=== PATIENT | male | born 1960 | race Caucasian/White ===

== ENCOUNTER → 2017-07-13 | Outpatient (CLI) | payer OTHER ==
[~2017-07-13] MED LIST: CETI5; ESOM20; LISI5 PO; NAPR550 PO; Percocet 5-3251 EACH PO; Robaxin500 MG PO
== END ==
LOC: LAB SHORT 09:42
DX: J02.9 Acute pharyngitis, unspecified (principal)
CPT/HCPCS: 87070

== ENCOUNTER 2017-10-01 14:10 | Emergency (ER) | payer OTHER ==
[~2017-10-01] VITALS: Ht 182.9 cm; Wt 90.7 kg
[~2017-10-01 14:10] MED LIST changes: -NAPR550 PO; -Percocet 5-3251 EACH PO; -Robaxin500 MG PO
[2017-10-01] MEDS ORDERED: Percocet 5-3251 EACH PO (15:21)
[2017-10-01] MEDS ORDERED: NAPR550 PO (15:21)
[2017-10-01] MEDS ORDERED: Robaxin500 MG PO (15:21)
== END 2017-10-01 15:28 | disposition home or self-care (01) ==
LOC: ER 14:10
DX: S20.211A Contusion of right front wall of thorax, initial encounter (principal); S40.011A Contusion of right shoulder, initial encounter; Z79.899 Other long term (current) drug therapy; W11.XXXA Fall on and from ladder, initial encounter
CPT/HCPCS: 71101; 73030; 99283

== ENCOUNTER 2019-01-08 13:31 | Day surgery (SDC) | payer OTHER ==
[~2019-01-08] VITALS: Ht 182.9 cm; Wt 93.2 kg
[~2019-01-08 13:31] MED LIST changes: +ASCO500 PO; +CHOL10002 PO; +LACT PO; +LO-DOSE ASPIRIN81 MG PO; +MAGOXI400 PO; +METFORMIN HCL500 MG PO; +NAPR550 PO; +NEPHPLEX RX TA1 EACH PO; +Percocet 5-3251 EACH PO; +Prilosec Otc20 MG PO; +Robaxin500 MG PO; +THERA1 EACH PO
--- NOTE | 2019-01-08 14:15 | NUR ---
01/08/19 1415 Beatriz Lee 2 IV ELLIS
--- NOTE | 2019-01-08 15:01 | NUR ---
01/08/19 1501 Jyothi Bal 1ML NS INJECTED FOR POLYPECTOMY
== END 2019-01-08 15:21 | disposition home or self-care (01) ==
LOC: ORSCSDS 13:31
PROVIDERS: Internal Medicine Gastroenterology
PROC: 0DBK8ZX Excision of Ascending Colon, Via Natural or Artificial Opening Endoscopic, Diagnostic (ICD-10-PCS; principal; 2019-01-08 15:00)
PROC: 0DB68ZX Excision of Stomach, Via Natural or Artificial Opening Endoscopic, Diagnostic (ICD-10-PCS; principal; 2019-01-08 15:00)
DX: Z12.11 Encounter for screening for malignant neoplasm of colon (principal); K21.0 Gastro-esophageal reflux disease with esophagitis; D12.2 Benign neoplasm of ascending colon; K44.9 Diaphragmatic hernia without obstruction or gangrene; K57.30 Diverticulosis of large intestine without perforation or abscess without bleeding; K64.8 Other hemorrhoids; E11.9 Type 2 diabetes mellitus without complications; Z79.899 Other long term (current) drug therapy
CPT/HCPCS: 82947; 88305; 88342; J2704; J7120

== ENCOUNTER 2019-08-26 06:15 | Day surgery (SDC) | payer OTHER ==
--- NOTE | 2019-08-26 06:54 | NUR ---
08/26/19 0654 Rosa Frost PROCEDURE CX BY DR MOTTA. DR MOTTA IS ILL TODAY. PT UNDERSTANDS AND WILL RESCHEDULE WITH DR MOTTA'S OFFICE.
== END 2019-08-26 06:40 | disposition home or self-care (01) ==
LOC: ORSCSDS 06:15
DX: J32.4 Chronic pansinusitis (principal); J34.3 Hypertrophy of nasal turbinates; J34.2 Deviated nasal septum; Z53.9 Procedure and treatment not carried out, unspecified reason
CPT/HCPCS: J7120

== ENCOUNTER 2019-10-03 19:21 | Emergency (ER) | payer OTHER ==
[~2019-10-03] VITALS: Ht 182.9 cm; Wt 86.2 kg
[2019-10-03] MEDS ORDERED: Prednisone10 MG PO (22:03)
[2019-10-03] MEDS ORDERED: PROP10 PO (22:04)
[2019-10-03 22:06] LABS: BASOPHILS ABSOLUTE AUTO 0.03 K/mm3 (0.00-0.23); BASOPHILS PERCENT AUTO 0 % (0-2); EOSINOPHILS ABSOLUTE AUTO 0.03 K/mm3 (0.00-0.68); EOSINOPHILS PERCENT AUTO 0 % (0-6); Hematocrit 41.6 % (37.0-53.0); Hemoglobin 13.9 g/dL (13.5-17.5); IMMATURE GRAN ABSOLUTE AUTO 0.09 K/mm3 (0.00-0.10); IMMATURE GRAN PERCENT AUTO 1 % (0-1); LYMPHOCYTES ABSOLUTE AUTO 1.98 K/mm3 (0.84-5.20); LYMPHOCYTES PERCENT AUTO 10 % (21-46); MONOCYTES ABSOLUTE AUTO 0.85 K/mm3 (0.16-1.47); MONOCYTES PERCENT AUTO 4 % (4-13); Mean Corpuscular HGB 32.9 pg (26.0-34.0); Mean Corpuscular HGB Conc 33.4 g/dL (31.5-36.5); Mean Corpuscular Volume 98 fL (80-100); NEUTROPHILS ABSOLUTE AUTO 16.37 K/mm3 (1.96-9.15); NEUTROPHILS PERCENT AUTO 85 % (41-73); Platelet Count 354 K/mm3 (150-400); RDW Coefficient Variation 13.4 % (11.7-14.2); RDW Standard Deviation 47.8 fL (35.1-46.3); Red Blood Cell Count 4.23 M/mm3 (4.30-5.90); White Blood Cell Count 19.35 K/mm3 (4.00-11.30)
[2019-10-03 22:26] LABS: Alanine Aminotransfer (ALT/SGP 44 U/L (12-78); Albumin, Blood 3.6 g/dL (3.4-5.0); Albumin/Globulin Ratio 1.1 (0.8-1.8); Alk Phos 73 U/L (50-136); Anion Gap 11 mmol/L (6-16); Aspartate Aminotrans (AST/SGOT 30 U/L (12-37); Bilirubin, Total 0.7 mg/dL (0.1-1.0); Blood Urea Nitrogen 32 mg/dL (8-24); Bun/Creatinine Ratio 21.6 (12.0-20.0); CO2, Blood 22 mmol/L (21-32); Calcium, Blood 9.1 mg/dL (8.5-10.1); Chloride, Blood 104 mmol/L (98-108); Creatinine, Blood 1.48 mg/dL (0.60-1.20); Globulin, Blood 3.4 g/dL (2.2-4.0); Glomerular Filtration Rate 51 (60-); Glucose, Blood 176 mg/dL (70-99); Potassium, Blood 4.8 mmol/L (3.5-5.5); Sodium, Blood 137 mmol/L (136-145); Troponin I <0.015 ng/mL (0.000-0.040)
[2019-10-03] MEDS ORDERED: Augmentin 875-1 EACH PO (23:03)
== END 2019-10-03 23:48 | disposition home or self-care (01) ==
LOC: ER 19:21
PROVIDERS: Physician Assistant
DX: R04.0 Epistaxis (principal); Z79.82 Long term (current) use of aspirin; Z79.84 Long term (current) use of oral hypoglycemic drugs; Z79.899 Other long term (current) drug therapy; Z87.891 Personal history of nicotine dependence
CPT/HCPCS: 30901; 36415; 71046; 80053; 84484; 85025; 86850; 86900; 86901; 93005; 93010; 96361-59; 96374-59; 96376-59; 99283-25; A9270-GY; J2405; J7030

== ENCOUNTER 2021-03-04 05:32 | Emergency (ER) | payer OTHER ==
[~2021-03-04] VITALS: Ht 175.3 cm; Wt 88.5 kg
[~2021-03-04 05:32] MED LIST changes: +Augmentin 875-1 EACH PO; +PROP10 PO; +Prednisone10 MG PO
== END 2021-03-04 06:36 | disposition home or self-care (01) ==
LOC: ER 05:32
DX: B34.9 Viral infection, unspecified (principal); Z87.891 Personal history of nicotine dependence; Z79.82 Long term (current) use of aspirin
CPT/HCPCS: 99284

== ENCOUNTER → 2021-03-05 | Outpatient (CLI) | payer OTHER | END | disposition home or self-care (01) | LOC: LAB SHORT 10:59 → LAB 10:59 | DX: J02.9 Acute pharyngitis, unspecified (principal); Z20.822 Contact with and (suspected) exposure to COVID-19 | CPT/HCPCS: 87081; U0003 ==

== ENCOUNTER → 2021-03-14 | Outpatient (CLI) | payer OTHER ==
[2021-03-16 18:03] LABS: CORONAVIRUS (COVID19) CSH-NRL Negative (Negative)
== END | disposition home or self-care (01) ==
LOC: LAB SHORT 13:23 → LAB 13:23
PROVIDERS: Physician Assistant Medical
DX: Z20.822 Contact with and (suspected) exposure to COVID-19 (principal)
CPT/HCPCS: U0003